=== PATIENT | male | born 1985 | race Caucasian/White ===

== ENCOUNTER 2021-12-26 01:15 | Emergency (ER) | payer OTHER ==
[~2021-12-26] VITALS: Ht 188 cm; Wt 104.6 kg
[2021-12-26] MEDS ORDERED: BACITRACIN OINTMENT 30GM TUBE TOP STA (07:52)
[2021-12-26] MEDS ORDERED: BACI500O8 TOP (08:48)
[2021-12-26] MEDS ORDERED: HOME MED LIST COMPLETE! XX SCH (08:50)
[2021-12-26 08:56] VITALS: BP 130/79
== END 2021-12-26 09:24 | disposition home or self-care (01) ==
LOC: M ED 01:15
DX: S00.81XA Abrasion of other part of head, initial encounter (principal); S02.5XXA Fracture of tooth (traumatic), initial encounter for closed fracture; V00.131A Fall from skateboard, initial encounter; Y92.410 Unspecified street and highway as the place of occurrence of the external cause